=== PATIENT | male | born 1975 | race Caucasian/White ===

== ENCOUNTER 2021-03-05 11:31 | Emergency (ER) | payer BC, SELFPAY ==
[2021-03-05 11:32] VITALS: BP 174/99; PULSE 77; RESP 20; TEMP 36.5; O2SAT 96; BMI 36.4
--- NOTE | 2021-03-05 13:19 | ED.LOWEXIN ---
HPI - Extremity Injury (Lower) General Chief Complaint: Extremity Injury, Lower Stated Complaint: hamstring injury Time Seen by Provider: 03/05/21 13:19 History of Present Illness HPI Narrative: Patient complains of right hamstring pain while playing baseball he felt a sudden pop in the back of his leg and now is unable to bear weight on it Related Data Previous Rx's Medication Instructions Recorded acetaminophen 1,000 mg PO QID PRN #30 tab 03/05/21 ibuprofen 600 mg PO Q6H PRN #20 tab 03/05/21 oxycodone 5 mg PO Q6H PRN #10 cap 03/05/21 Allergies Allergy/AdvReac Type Severity Reaction Status Date / Time No Known Allergies Allergy Verified 03/05/21 11:36 Review of Systems Review of Systems: Positive for right hamstring pain Negatives are no dizziness no weakness no fainting no feeling faint no headache no neck pain no back pain no numbness weakness or tingling Yes all other systems are reviewed and are negative PMFSH Past Medical History Source: nursing notes reviewed Medical History (Updated 03/15/21 @ 09:21 by Dolly Rider MD) No known health problems Surgical History (Updated 03/15/21 @ 09:09 by Berta Oconnor CMA) H/O left knee surgery H/O right knee surgery Social History Social History (Updated 03/15/21 @ 09:10 by Berta Oconnor CMA) Current occupational status: employed 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) Physical Exam Vital Signs: Vital Signs: Last Vital Signs Temp 97.7 F 03/05/21 11:32 Pulse 77 03/05/21 11:32 Resp 20 03/05/21 11:32 BP 174/99 H 03/05/21 11:32 Pulse Ox 96 03/05/21 11:32 Body Mass Index 36.4 General appearance no distress Head is normocephalic atraumatic Neck is supple Respiratory no acute distress The back has full range of motion Extremities the right hamstring area just superior to the knee as well as the proximal hamstring have tenderness there is no ecchymosis or swelling now there is pain when he goes to bend it or fully extended there is pain when he walks on it, neurovascular intact distal and skin is intact Other extremities full range of motion Neuro no gross motor or sensory deficit Skin no lacerations Course Course Course Narrative: History and exam are consistent with a hamstring muscle tear and patient is given an Pankaj bandage crutches and follow with Orthopedics as knee Discharge Plan Discharge Clinical Impression: Hamstring tear Patient Disposition: Home, Self-Care Additional Instructions: You tore a muscle in the back of her leg, this will take many weeks to get fully better but usually your able to limp on it and walk comfortably with a limp after a few days Follow with orthopedist for further evaluation and possible physical therapy if needed Return any time any worse condition or any concerns Her blood pressure was high in the ER on this day so we recommend get a home blood pressure cuff and keep a record and follow with primary care doctor to see whether not you actually have high blood pressure Prescriptions: New oxycodone 5 mg capsule 5 mg PO Q6H PRN (Reason: pain) Qty: 10 RF: 0 acetaminophen 500 mg tablet 1,000 mg PO QID PRN (Reason: pain) Qty: 30 RF: 0 ibuprofen 600 mg tablet 600 mg PO Q6H PRN (Reason: pain) Qty: 20 RF: 0 Referrals: Kait Trevino MD [Physician] - 2 days (Hamstring injury) Stand Alone Forms: Work/School Release Interventions: ED Discharge Assessment Last Done: 03/05/21 13:45 Discharge Date/Time: 03/05/21 13:47
[2021-03-05] MEDS: Ibuprofen 600 MG TABLET PO (13:40)
--- NOTE | 2021-03-05 13:51 | PC.NURSE ---
bp 149/97, 98.2 temp, p 76, resp 16, o2sat 97% ra
== END 2021-03-05 13:47 | disposition home or self-care (01) ==
PROVIDERS: Emergency Provider Emergency Medicine Emergency Medical Services; PCP Internal Medicine
DX: S76.311A Strain of muscle, fascia and tendon of the posterior muscle group at thigh level, right thigh, initial encounter (principal); X50.1XXA Overexertion from prolonged static or awkward postures, initial encounter; Y93.64 Activity, baseball; Y92.320 Baseball field as the place of occurrence of the external cause; Y99.9 Unspecified external cause status
CPT/HCPCS: 99283

== ENCOUNTER → 2021-03-15 08:56 | Outpatient (BNVA) | payer BC, SELFPAY | PROVIDERS: Visit Provider Orthopaedic Surgery ==

== ENCOUNTER 2024-11-30 09:44 | Emergency (ER) | payer BC, SELFPAY ==
--- NOTE | ~2024-11-30 | CT_ITS ---
EXAMINATION: CT HEAD WITHOUT IV CONTRAST HISTORY: HYPERTENSION, H/A. TECHNIQUE: Unenhanced helical CT of the head was performed per standard departmental protocol. Coronal and sagittal reformats of the head were also evaluated. One or more of the following techniques was used for dose reduction: Automated exposure control, adjustment of the mA and/or kV according to patient size, use of iterative reconstruction technique. DLP: 742 mGy-cm COMPARISON: There are no prior studies for comparison. FINDINGS: BRAIN: The brain parenchyma is unremarkable. There is normal tovar/white differentiation. The ventricular system is normal in size and configuration. There is a cavum of septum pellucidum, normal variant. There is no mass effect or midline shift. No intra- or extra-axial fluid collections are identified. SINUSES: The visualized paranasal sinuses are clear. The mastoid air cells and middle ear cavities are well pneumatized. ORBITS: The visualized orbits are unremarkable. BONES/SOFT TISSUES: The extracranial soft tissues are unremarkable. The calvarium is intact. No suspicious lytic or sclerotic lesions. CT/CT head/brain wo IV con IMPRESSION: Unremarkable unenhanced head CT. Electronically signed by: Parker Irwin MD 11/30/2024 11:15 AM BRUNO
[2024-11-30 09:57] VITALS: BP 195/129; PULSE 84; RESP 18; TEMP 36.4; O2SAT 97; BMI 38.0
--- NOTE | 2024-11-30 10:05 | ECG_ITS ---
Test Reason : headache Blood Pressure : */* mmHG Vent. Rate : 81 BPM Atrial Rate : 81 BPM P-R Int : 158 ms QRS Dur : 74 ms QT Int : 346 ms P-R-T Axes : 26 2 20 degrees QTcB Int : 401 ms Normal sinus rhythm Normal ECG No previous ECGs available Referred By: Darlin Perkins Electronically Signed By: DIONY OLGUIN MD
[2024-11-30 10:36] LABS: MANUAL DIFF FLAG NO
[2024-11-30 10:39] LABS: Basophils Absolute Auto 0.1 X10*3/uL (0.0-0.2); Eosinophils Absolute Auto 0.2 X10*3/uL (0.0-0.4); Eosinophils Percent Auto 2.2 % (0-4); Hematocrit 45.8 % (42.0-52.0); Hemoglobin 16.7 g/dl (14.0-18.0); Imm Gran Abs Auto 0.01 X10*3/uL (0.00-0.03); Imm Gran Pct Auto 0.1 % (0.0-0.4); Lymphocytes Absolute Auto 2.5 X10*3/uL (1.2-4.9); Lymphocytes Percent Auto 30.7 % (20-40); Mean Corpuscular HGB Conc 36.5 g/dl (31.0-36.0); Mean Corpuscular Hemoglobin 31.6 pg (27.0-33.0); Mean Corpuscular Volume 86.6 fL (80.0-98.0); Mean Platelet Volume 10.4 fL (9.4-12.4); Monocytes Absolute Auto 0.5 X10*3/uL (0.1-1.2); Monocytes Percent Auto 5.7 % (2-11); Neutrophils Absolute Auto 4.9 x10*3/uL (2.0-8.3); Neutrophils Percent Auto 60.3 % (45-73); Platelet Count 326 X10*3/uL (160-400); Red Blood Count 5.29 X10*6/uL (4.60-5.80); Red Cell Distribution Width 12.2 % (11.0-16.0); White Blood Count 8.1 X10*3/uL (4.8-10.8)
[2024-11-30 10:50] LABS: Alanine Aminotransferase 56 U/L (0-40); Albumin Level 4.6 g/dL (3.5-5.0); Alkaline Phosphatase 71 U/L (39-117); Anion Gap 15 (12-20); Aspartate Amino Transferase 28 U/L (5-37); Bilirubin Total 0.4 mg/dL (0.0-1.0); Blood Urea Nitrogen 17 mg/dL (9-16); Calcium 9.4 mg/dL (8.4-10.2); Carbon Dioxide 20 mmol/L (22-29); Chloride 106 mmol/L (96-108); Creatinine Clr Calc Pharmacy 97.6; Estimated Glomerular Filt Rate > 60; Glucose Random 176 mg/dL (60-115); Potassium 4.4 mmol/L (3.3-5.1); Sodium 137 mmol/L (135-145); Total Protein 8.3 g/dL (6.5-8.0)
[2024-11-30 10:57] LABS: Troponin-I High Sensitivity 7.5 ng/L (<3.5-35.0)
[2024-11-30 12:34] VITALS: BP 167/87; PULSE 84; RESP 20; TEMP 36.7; O2SAT 95
--- NOTE | 2024-11-30 12:34 | MHC.EDTECH ---
vitals retaken in triage tech room, bp lowered
--- NOTE | 2024-11-30 14:05 | ED_ITS ---
HPI - General Adult General Chief complaint: Headache Stated complaint: headache Time Seen by Provider: 11/30/24 14:41 Source: patient Mode of arrival: ambulatory Limitations: no limitations History of Present Illness ED Provider: Sara Camarena PA-C HPI narrative: Patient is a 49 year old assigned male at with a history of HTN presenting to the emergency department today with a headache. Patient states that over the last day he has had headache that is primarily in the back of his head. Patient states that he has not taken his high blood pressure medication for 2 days. Patient denies any dizziness, lightheadedness, abdominal pain, nausea, vomiting, fever, chills, blurry vision, double vision, loss of vision, chest pain, difficulty breathing, shortness of breath, back pain, night sweats, pain with urination, increased urinary frequency, increased urinary urgency, blood in his urine or stool, syncope or a near syncopal episode, recent trauma or falls, bowel incontinence, bladder incontinence, or any other complaints at this time. Location: head Relieving factors: none Exacerbating factors: none Associated symptoms: headaches Treatments prior to arrival: none Related Data Previous Rx's ?Medication ?Instructions ?Recorded acetaminophen 500 mg tablet 1,000 mg (2 x 500 mg) PO QID PRN 03/05/21 pain #30 tabs ibuprofen 600 mg tablet 600 mg PO Q6H PRN pain #20 tabs 03/05/21 oxycodone 5 mg capsule 5 mg PO Q6H PRN pain #10 caps 03/05/21 Allergies Allergy/AdvReac Type Severity Reaction Status Date / Time No Known Allergies Allergy Verified 11/30/24 10:00 Review of Systems 2 Constitutional: Constitutional: Reports no additional constitutional complaints, Denies chills, Denies fever(s), Reports headache(s) and Denies night sweats Eyes: Eyes: Reports no additional eye complaints, Denies blurry vision, Denies change in vision, Denies diplopia, Denies eye discharge, Denies loss of vision and Denies eye pain ENT: Denies dizziness and Reports headache(s) Cardiovascular: Cardiovascular: Reports no additional cardiovascular complaints, Denies chest pain, Denies lightheadedness, Denies Loss of Consciousness and Denies dyspnea Respiratory: Respiratory: Reports no additional respiratory complaints and Denies dyspnea Gastrointestinal: Gastrointestinal: Reports no additional gastrointestinal complaints, Denies abdominal pain, Denies melena, Denies hematochezia, Denies change in bowel habits and Denies change in stool character Genitourinary: Genitourinary: Reports no additional male genitourinary complaints, Denies hematuria, Denies oliguria, Denies difficulty urinating, Denies dysuria, Denies urinary frequency, Denies urinary hesitancy, Denies urinary incontinence and Denies urinary urgency Musculoskeletal: Musculoskeletal: Reports no additional musculoskeletal complaints, Denies numbness and Denies tingling Neurologic: Denies dizziness, Reports headache(s), Denies loss of vision, Denies numbness and Denies tingling Psychiatric: Psychiatric: Reports no additional psychiatric complaints Endocrine: Endocrine: Reports no additional endocrine complaints Hematologic/Lymphatic: Hematologic/Lymphatic: Reports no additional hematologic/lymphatic complaints Allergic/Immunologic: Allergic/Immunologic: Reports no additional allergic/immunologic complaints PMFSH Past Medical History Attestation statement: The following information was validated with the patient. Source: old records reviewed and nursing notes reviewed Medical History No known health problems Surgical History H/O left knee surgery H/O right knee surgery Social History Social History Advance Directives: Yes Advance Directives Information Provided: No Advance Directives on File: No Current occupational status: employed Current occupation: [employer] - [employer] ([employer]) Physical Exam ED Vital Signs: Vital Signs - 24 hr 11/30/24 09:57 11/30/24 12:34 11/30/24 14:11 Temperature 97.5 F 98.1 F Pulse Rate 84 84 81 Respiratory Rate 18 20 20 Blood Pressure 195/129 H 167/87 H 168/97 H Pulse Oximetry 97 95 94 Oxygen Delivery Method Room Air Room Air Room Air 11/30/24 14:46 Temperature 98.1 F Pulse Rate 81 Respiratory Rate 20 Blood Pressure 168/97 H Pulse Oximetry 94 Oxygen Delivery Method Room Air BMI result Body Mass Index 38.0 Const General: cooperative, no acute distress, alert and awake Nutritional Appearance: well nourished Orientation/consciousness: patient oriented x3 Limitations: no limitations HENMT Head: Yes normal to inspection and Yes atraumatic Ears: hearing grossly normal bilaterally and external ears normal General nose exam: Normal external nose present, no nasal discharge noted and no epistaxis Face and sinus: Yes normal facial exam, No abrasion and No laceration Mouth: Normal oral and palatal mucosa present, no drooling and no muffled voice Eyes General: appearance normal, both eyes and all related structures Periorbital: periorbital findings normal Eyelids: Yes eyelids normal Conjunctivae: conjunctivae normal Pupils: Equal, round and reactive pupils present EOM: EOMs intact bilaterally Neck Neck: Yes normal visual inspection, Yes full ROM and Yes no lymphadenopathy Chest Chest palpation & inspection: normal inspection of the chest Resp Effort & Inspection: normal respiratory effort and able to speak in complete sentences GI Inspection: Yes normal to inspection Neuro General: patient oriented x3, moves all extremities and CN's II-XI intact bilaterally Cranial nerves: Yes Equal, round and reactive pupils present Cognition (Neuro): normal cognition Extrem General: Yes normal to inspection, Yes full ROM and Yes capillary refill normal Psych Appearance: grossly normal Mental Status: mental status grossly normal Affect: normal affect Attitude: cooperative Thought process: Normal thought process present Thought content: Normal thought content present Insight: Good insight present (Psych) Course Course Course Narrative: RME performed by Sara Camarena PA-C. Patient is a 49 year old assigned male at presenting to the emergency department with a headache. Patient states that over the last day he has had a headache. Patient states that he has a history of high blood pressure for which he is on mediation but has not taken it for 2 days. Detailed physical exam and review of systems are deferred to the primary therapist. EKG, labs, and imaging ordered. Patient placed back in the waiting room pending room availability and results. Medical Decision Making Medical Decision Making MDM Narrative: Patient is a 49 year old assigned male at with a history of HTN presenting to the emergency department today with a headache. Patient's physical exam showed mild hypertension - consistent with someone who has not taken their prescribed anti-hypertensive medications but otherwise unremarkable. Patient's blood work was unremarkable. Patient's EKG was unremarkable. Patient's head CT showed no acute process. I explained my physical exam findings as well as all test results to the patient. I answered all questions asked by the patient. I stressed the importance of the patient taking his medication as directed (either prescribed or as the over the counter packaging recommends). I stressed the importance of the patient following up with his primary care provider. I stressed the importance of the patient returning to the emergency department immediately if his symptoms were to worsen or if he were to develop any dizziness, shortness of breath, difficulty breathing, chest pain, blurry vision, loss of vision, nausea, vomiting, abdominal pain, fever, chills, back pain, or any other complaints. Patient verbalized agreement and understanding with this treatment plan and discharge. Differential Diagnosis Differential Diagnoses: The differential diagnosis associated with the presentation includes Headache Medication non-compliance HTN Cluster headache Tension headache Admission/Observation Consideration of admission/observation: Escalation of care including admission/observation considered Patient would have been admitted to the hospital had his work up had any findings where hospital admission was appropriate and his clinical presentation warranted hospital admission. Lab Data [facility] Lab Attestation statement: I reviewed the patient's lab results. My interpretation of these results are in the [facility] Rationale portion of this note. 11/30/24 10:24 11/30/24 10:24 Labs: Lab Results 11/30/24 11/30/24 Range/Units 10:24 14:07 WBC 8.1 (4.8-10.8) X10*3/uL RBC 5.29 (4.60-5.80) X10*6/uL Hgb 16.7 (14.0-18.0) g/dl Hct 45.8 (42.0-52.0) % MCV 86.6 (80.0-98.0) fL MCH 31.6 (27.0-33.0) pg MCHC 36.5 H (31.0-36.0) g/dl RDW 12.2 (11.0-16.0) % Plt Count 326 (160-400) X10*3/uL MPV 10.4 (9.4-12.4) fL Immature Gran % (Auto) 0.1 (0.0-0.4) % Neut % (Auto) 60.3 (45-73) % Lymph % (Auto) 30.7 (20-40) % Roane % (Auto) 5.7 (2-11) % Eos % (Auto) 2.2 (0-4) % Baso % (Auto) 1.0 (0-2) % Lymph # (Auto) 2.5 (1.2-4.9) X10*3/uL Roane # (Auto) 0.5 (0.1-1.2) X10*3/uL Eos # (Auto) 0.2 (0.0-0.4) X10*3/uL Baso # (Auto) 0.1 (0.0-0.2) X10*3/uL Abs Immat Gran (auto) 0.01 (0.00-0.03) X10*3/uL Absolute Neuts (auto) 4.9 (2.0-8.3) x10*3/uL Absolute Nucleated RBC 0.000 (0.0-0.012) X10*3/uL Nucleated RBC % (auto) 0.0 (0.0-0.2) /100WBC Sodium 137 (135-145) mmol/L Potassium 4.4 (3.3-5.1) mmol/L Chloride 106 (96-108) mmol/L Carbon Dioxide 20 L (22-29) mmol/L Anion Gap 15 (12-20) BUN 17 H (9-16) mg/dL Creatinine 1.13 (0.5-1.4) mg/dL Estim Creat Clear Calc 97.6 Estimated GFR > 60 Random Glucose 176 H (60-115) mg/dL Calcium 9.4 (8.4-10.2) mg/dL Total Bilirubin 0.4 (0.0-1.0) mg/dL AST 28 (5-37) U/L ALT 56 H (0-40) U/L Alkaline Phosphatase 71 (39-117) U/L Troponin I High Sens 7.5 7.3 (<3.5-35.0) ng/L Total Protein 8.3 H (6.5-8.0) g/dL Albumin 4.6 (3.5-5.0) g/dL Independent Interpretation I performed an independent interpretation of an: EKG and CT Scan Interpretation: My interpretation is in agreement with the radiologist's impression of this imaging study. L Report Number: [id number]: Total DLP = 742.00 mGy-cm EXAMINATION: CT HEAD WITHOUT IV CONTRAST HISTORY: HYPERTENSION, H/A. TECHNIQUE: Unenhanced helical CT of the head was performed per standard departmental protocol. Coronal and sagittal reformats of the head were also evaluated. One or more of the following techniques was used for dose reduction: Automated exposure control, adjustment of the mA and/or kV according to patient size, use of iterative reconstruction technique. DLP: 742 mGy-cm COMPARISON: There are no prior studies for comparison. FINDINGS: BRAIN: The brain parenchyma is unremarkable. There is normal tovar/white differentiation. The ventricular system is normal in size and configuration. There is a cavum of septum pellucidum, normal variant. There is no mass effect or midline shift. No intra- or extra-axial fluid collections are identified. SINUSES: The visualized paranasal sinuses are clear. The mastoid air cells and middle ear cavities are well pneumatized. ORBITS: The visualized orbits are unremarkable. BONES/SOFT TISSUES: The extracranial soft tissues are unremarkable. The calvarium is intact. No suspicious lytic or sclerotic lesions. CT/CT head/brain wo IV con IMPRESSION: Unremarkable unenhanced head CT. Electronically signed by: Parker Irwin MD 11/30/2024 11:15 AM [facility] Dictated By: Parker Irwin MD Signed By: Electronically signed by Parker Irwin MD 11/30/24 1115 I independently interpreted this EKG and am in agreement with the below findings: Vent. Rate: 81 BPM Atrial Rate: 81 BPM P-R Int: 158 ms QRS Dur: 74 ms QT Int: 346 ms P-R-T Axes: 26 2 20 degrees QTcB Int: 401 ms Normal sinus rhythm No previous ECGs available Electronically Signed By: BRAVO OLGUIN MD Dictated By: Bravo Olguin MD Signed By: Electronically signed by Bravo Olguin MD 11/30/24 0886 Radiology Impression Discussion of test interpretation with radiology: I have reviewed the radiologist's reading. Chronic Conditions Patient?s care impacted by: Hypertension Discharge Plan Discharge Clinical Impression: Headache, Hypertension Patient Disposition: Home, Self-Care Instructions: Acute Headache (DC), Hypertension (ED) Additional Instructions: Your work up today is reassuring. Take your blood pressure medication as prescribed. Follow up with your primary care provider. Return to the emergency department immediately if your symptoms worsen or if you develop any dizziness, shortness of breath, difficulty breathing, chest pain, blurry vision, loss of vision, nausea, vomiting, abdominal pain, fever, chills, back pain, or any other complaints. Prescriptions: No Action oxycodone 5 mg capsule 5 mg PO Q6H PRN (Reason: pain) Qty: 10 0RF Rx Instructions: Narcotic, no driving for 6 hours after taking this medication acetaminophen 500 mg tablet 1,000 mg PO QID PRN (Reason: pain) Qty: 30 0RF ibuprofen 600 mg tablet 600 mg PO Q6H PRN (Reason: pain) Qty: 20 0RF Referrals: Aime Wilkinson MD [Primary Care Provider] - Interventions: ED Discharge Assessment Last Done: 11/30/24 14:46 Discharge Date/Time: 11/30/24 15:03 Print Language: Monegasque
[2024-11-30 14:11] VITALS: BP 168/97; PULSE 81; RESP 20; O2SAT 94
[2024-11-30 14:35] LABS: Troponin-I High Sensitivity 7.3 ng/L (<3.5-35.0)
[2024-11-30 14:46] VITALS: BP 168/97; PULSE 81; RESP 20; TEMP 36.7; O2SAT 94
--- OUTSIDE RECORDS SUMMARY | 2024-11-30 17:37 | XMS_ITS | Clinical Summary ---
Author Organization [facility] Address [address] [place] [address] Phone Care Team Providers Care Sales Force Administrator Name Role Phone Aime Wilkinson MD Primary Care Provider [phone] Allergies No known active allergies Medications clotrimazole (LOTRIMIN) 1 % cream Apply thin layer to affected area twice daily for 3 weeks. 06/29/2024 06/24/20 25 Active amLODIPine (NORVASC) 5 mg tablet Take 1 Tablet by mouth daily. Active ibuprofen (ADVIL,MOTRIN) 600 mg tablet Take 1 tablet (600 mg total) by mouth every 6 (six) hours if needed. 05/18/2024 Active Active Problems Problem Noted Date Diagnosed Date Primary hypertension 11/22/2022 Mixed hyperlipidemia 11/22/2022 Prediabetes 11/22/2022 Carpal tunnel syndrome 11/27/2012 Groin strain 06/20/2010 Hypertriglyceridemia 02/10/2008 Elevated blood pressure reading 02/10/2008 Encounters Date Type Department Care Team Description 11/30/2024 Telephone Adult Medicine [facility] [place] [address] [place] [phone] Aime Wilkinson MD Headache 11/04/2024 9:00 AM EST Consult Gastroenterology [facility] [address] [address] Monica Ladd NP Esophageal dysphagia (Primary Dx) 11/04/2024 Telephone Gastroenterology [facility] [address] 175 [facility] [address] [place] [phone] Wilberto LAWRENCE armstrong 09/25/2024 1:30 PM EST - 09/25/2024 11:59 PM EST Hospital Encounter XRAY - [place] [address] [place] [address] Esophageal dysmotility Discharge Disposition: Home or Self Care 09/21/2024 9:18 AM EST - 09/21/2024 11:59 PM EST Hospital Encounter [facility] Xray [address] [place] [phone] Discharge Disposition: Home or Self Care from Last 3 Months Immunizations Name Administration Dates Next Due Influenza trivalent, 0.5mL, preservative free (Fluarix; FluLaval; Fluzone) ages 6mo and older (Afluria) 3 years and older 06/17/2012,08/16/2011,06/20/2010,2008 Td Tetanus diptheria (Tdvax) 7yo and older 05/04/2022,08/25/2003 Tdap Tetanus diptheria acell ular pertussis (Boostrix; Adacel) 7yo and older 12/06/2011 Surgical History Surgery Date Site/Laterality Comments KNEE SURGERY PROCEDURE: HISTORICAL KNEE SURGERY; COMMENT: 2 right, 1 on left, arthroscopic surgery Medical History Medical History Date Comments Primary hypertension 11/22/2022 Family History Medical History Relation Name Comments Heart attack Brother 1 DM, obese No Known Problems Brother 2 No Known Problems Brother 3 No Known Problems Daughter Stroke Father [place], CABG No Known Problems Maternal Grandfather No Known Problems Maternal Grandmother sm oker Dementia Mother arthritis, pace maker No Known Problems Paternal Grandfather No Known Problems Paternal Grandmother Arthritis Sister 1 Hypertension Sister 2 No Known Problems Son Blindness Neg Hx Cataracts Neg Hx Glaucoma Neg Hx Macular degeneration Neg Hx Strabismus Neg Hx Relation Name Status Comments Brother 1 Alive Brother 2 Alive Brother 3 Alive Daughter Alive Father Maternal Grandfather Maternal Grandmother Mother Paternal Grandfather Paternal Grandmother Sister 1 Alive Sister 2 Alive Son Alive Social History Tobacco Use Types Packs/Day Years Used Date Smoking Tobacco: Never Smokeless Tobacco: Never Alcohol Use Standard Drinks/Week Comments Yes 0 (1 standard drink = 0.6 oz pur e alcohol) Sex and Gender Information Value Date Recorded Sex Assigned at Not on file Legal Sex Male 9:53 PM EST Gender Identity Not on file Sexual Orientation Not on file Obstetrics History Last Filed Vital Signs Vital Sign Reading Time Taken Comments Blood Pressure 142/92 06/29/2024 8:32 AM EDT Pulse 94 06/29/2024 8:32 AM EDT Temperature - - Respiratory Rate - - Oxygen Saturation - - Inhaled Oxygen Concentration - - Weight 117 kg (259 lb) 11/04/2024 9:02 AM EST Height 172.7 cm (5' 8 ) 11/04/2024 9:02 AM EST Body Mass Index 39.38 11/04/2024 9:02 AM EST Plan of Treatment Upcoming Encounters Date Type Department Care Team (Late st Contact Info) Description 12/29/2024 1:30 PM EDT Appointment [facility] Endoscopy [address] [place] [phone] Matt Camp DO 175 [facility] [place] [address] [place] [address] Health Maintenance Due Date Last Done Comments Hepatitis B Vaccines (1 of 3 - 19+ 3-dose series) 1995 Colorectal Cancer Screening: Colonoscopy 09/08/2022 Depression Screening 09/08/2022 HIV Screening 09/08/2022 Hepatitis C Screening 09/08/2022 Social Influencers of Health Screening 09/08/2022 COVID-19 Vaccine ( season) 2024 Influenza Vaccine (#1) 2024 2, 08/16/2011, 06/20/2010, Additional history exists Hypertension/CHF/CAD Annual BMP Blood Test 06/29/2025 06/29/2024, 06/29/2024 Cholesterol Screening (Lipid Panel) 06/29/2029 06/29/2024, 06/29/2024 DTaP,Tdap,and Td Vaccines (4 - Td or Tdap) 05/04/2032 05/04/2022, 12/06/2011, 08/25/2003 HIB Vaccines Aged Out No longer eligi ble based on patient's age to complete this topic HPV Vaccines Aged Out No longer eligi ble based on patient's age to complete this topic Hepatitis A Vaccines Aged Out No long er eligible based on patient's age to complete this topic IPV Vaccines Aged Out No longer eligi ble based on patient's age to complete this topic MMR Vaccines Aged Out No longer eligi ble based on patient's age to complete this topic Meningococcal ACWY Vaccine Aged Out N o longer eligible based on patient's age to complete this topic Meningococcal B Vacine Aged Out No lo nger eligible based on patient's age to complete this topic Pneumococcal Vaccine: Pediatrics (0 to 5 Years) and At-Risk Patients (6 to 64 Years) Aged Out No longer eligible based on patient's age to complete this topic RSV Immunization Patients Under 20 months Aged Out No longer eligible based on patient's age to complete this topic Varicella Vaccines Aged Out No longer eligible based on patient's age to complete this topic Procedures Procedure Name Priority Date/Time Associated Diagnosis Comments XR CHEST 2 VIEWS Routine 09/25/2024 1:39 PM EST Esophageal dysmotility XR ESOPHAGRAM Routine 09/21/2024 1:52 PM EST Dysphagia HM ANNUAL BMP BLOOD TEST Routine 06/29/2024 LIPID PANEL Routine 06/29/2024 from Last 3 Months or Most Recently Relevant to Health Maintenance Results * XR Chest 2 Views (09/25/2024 1:39 PM EST) Anatomical Region Laterality Modality Body Radiographic Geraldine ging 09/25/2024 4:24 PM EST Impressions 09/25/2024 4:26 PM EST No acute pulmonary pathology. However, if there is clinical concern for a lesion, then chest CT would be suggested. -------- FINAL REPORT -------- Dictated By: Nuzhat Johnson Dictated Date: 09/25/2024 16:24 ET Assigned Physician: Nuzhat Johnson Reviewed and Electronically Signed By: Nuzhat Johnson Signed Date: 09/25/2024 16:26 ET Workstation ID: [id number] Transcribed By: Self Edit Transcribed Date: 09/25/2024 16:24 ET Narrative 09/25/2024 4:26 PM EST CHEST, TWO VIEWS HISTORY: ??To further clarify density seen near right bronchus on barium swallow study . TECHNIQUE: Frontal and lateral views of the chest. PRIOR: None currently available. FINDINGS: The lungs are clear. No pleural effusion is seen. No pneumothorax is seen. The cardiac diameter is within normal limits. No acute or aggressive appearing bony abnormalities are seen. ?? Procedure Note Nuzhat Johnson MD - 09/25/2024 CHEST, TWO VIEWS HISTORY: To further clarify density seen near right bronchus on bariumswallow study . TECHNIQUE: Frontal and lateral views of the chest. PRIOR: None currently available. FINDINGS: The lungs are clear. No pleural effusion is seen. No pneumothorax is seen. The cardiac diameter is within normal limits. No acute or aggressive appearing bony abnormalities are seen. IMPRESSION: No acute pulmonary pathology. However, if there is clinical concern for alesion, then chest CT would be suggested. -------- FINAL REPORT -------- Dictated By: Nuzhat Johnson Dictated Date: 09/25/2024 16:24 ET Assigned Physician: Nuzhat Johnson Reviewed and Electronically Signed By: Nuzhat Johnson Signed Date: 09/25/2024 16:26 ET Workstation ID: [id number] Transcribed By: Self Edit Transcribed Date: 09/25/2024 16:24 ET Bernardo SAMANIEGO IMG XR PROCEDURES Final Result * XR Esophagram (09/21/2024 1:52 PM EST) Anatomical Region Laterality Modality Head and Neck Radiographic Geraldine ging 09/21/2024 1:18 PM EST Impressions 09/21/2024 9:03 PM EST 1. 1.9 cm density adjacent to the right main bronchus seen on 1 view chest imaging as described above. ??Follow-up chest radiograph with improved depth of inspiration is recommended. ??If this finding does not resolve at that time, CT scan of the chest should then be considered. ?? 2. Moderate to severe esophageal dysmotility. 3. ??A small amount of laryngeal penetration occurred, without glenna aspiration. -------- FINAL REPORT -------- Dictated By: Amrita Hurt Dictated Date: 09/21/2024 13:18 ET Assigned Physician: Jos Oquendo Reviewed and Electronically Signed By: Jos Oquendo Signed Date: 09/21/2024 21:03 ET Workstation ID: [id number] Transcribed By: Self Edit Transcribed Date: 09/21/2024 13:42 ET Resident/PA/MANAGEMENT TRAINEE PROGRAM STORES: Amrita Hurt Narrative 09/21/2024 9:03 PM EST FINDINGS: Double contrast esophagram performed. COMPARISON: None HISTORY: Patient is a 49-year-old male with history of dysphagia, reflux. Machine Rigger radiographs: 1 view chest radiograph demonstrates poor inspiratory effort. Mediastinal borders within normal limits. Cardiac silhouette is upper limits of normal. There is a 1.9 cm density adjacent to the right main bronchus which may be secondary to poor inspiration, though developing nodule, mass, or infiltrate in this region cannot be excluded. 1 view lateral soft tissue neck demonstrates no prevertebral soft tissue masses. Airway is widely patent. Effervescent crystals were administered orally. Thick and thin barium were administered orally under fluoroscopic control. Pharyngoesophagram: Rapid sequence imaging of the hypopharynx during swallowing demonstrates prompt initiation of swallowing. There is normal soft palate elevation and normal epiglottic motion. ??A small amount of laryngeal penetration occurred, without glenna aspiration. There is no residual in the vallecula nor in the piriform sinuses. Thoracic esophagus: Moderate to severe esophageal dysmotility as demonstrated by slow transit of contrast down the esophagus, a patulous appearance of the esophagus, and nonperistaltic and tertiary contractions visualized. Normal distensibility and mucosal pattern without evidence of ulceration, stricture or mass formation. Hiatal hernia: None Reflux: Unable to elicit 13mm Barium pill: Swallowed without difficulty. Prompt passage of pill from the esophagus into the stomach. DAP: 1461.2 uGym^2 Exam performed and dictated by: Amrita Hurt PA-C Supervising physician: Jos Oquendo MD Procedure Note Jos Oquendo MD - 09/21/2024 FINDINGS: Double contrast esophagram performed. COMPARISON: None HISTORY: Patient is a 49-year-old male with history of dysphagia,reflux. Machine Rigger radiographs: 1 view chest radiograph demonstrates poor inspiratoryeffort. Mediastinal borders within normal limits. Cardiac silhouette isupper limits of normal. There is a 1.9 cm density adjacent to the rightmain bronchus which may be secondary to poor inspiration, thoughdeveloping nodule, mass, or infiltrate in this region cannot be excluded.1 view lateral soft tissue neck demonstrates no prevertebral soft tissuemasses. Airway is widely patent. Effervescent crystals were administered orally. Thick and thin barium wereadministered orally under fluoroscopic control. Pharyngoesophagram: Rapid sequence imaging of the hypopharynx duringswallowing demonstrates prompt initiation of swallowing. There is normalsoft palate elevation and normal epiglottic motion. A small amount oflaryngeal penetration occurred, without glenna aspiration. There is noresidual in the vallecula nor in the piriform sinuses. Thoracic esophagus: Moderate to severe esophageal dysmotility asdemonstrated by slow transit of contrast down the esophagus, a patulousappearance of the esophagus, and nonperistaltic and tertiary contractionsvisualized. Normal distensibility and mucosal pattern without evidence ofulceration, stricture or mass formation. Hiatal hernia: None Reflux: Unable to elicit 13mm Barium pill: Swallowed without difficulty. Prompt passage of pillfrom the esophagus into the stomach. DAP: 1461.2 uGym^2 Exam performed and dictated by: Amrita Hurt PA-C Supervising physician: Jos Oquendo MD IMPRESSION: 1. 1.9 cm density adjacent to the right main bronchus seen on 1 view chestimaging as described above. Follow-up chest radiograph with improveddepth of inspiration is recommended. If this finding does not resolve atthat time, CT scan of the chest should then be considered. 2. Moderate to severe esophageal dysmotility. 3. A small amount of laryngeal penetration occurred, without frankaspiration. -------- FINAL REPORT -------- Dictated By: Amrita Hurt Dictated Date: 09/21/2024 13:18 ET Assigned Physician: Jos Oquendo Reviewed and Electronically Signed By: Jos Oquendo Signed Date: 09/21/2024 21:03 ET Workstation ID: [id number] Transcribed By: Self Edit Transcribed Date: 09/21/2024 13:42 ET Resident/PA/MANAGEMENT TRAINEE PROGRAM STORES: Amrita Hurt Bernardo SAMANIEGO IMG FLUOROSCOPY PROCEDUR ES Final Result * Annual BMP Blood Test (06/29/2024) Annual BMP Blood Test Abstracted Historical Provider HEALTH MAINTENANCE Final Result * (ABNORMAL) Lipid panel (06/29/2024) LDL/HDL Ratio 8(A) 0 - 4 Triglycerides 422(A) 0 - 150 mg/dL Cholesterol 272(A) 0 - 200 mg/dL HDL 33(A) >=40 mg/dL LDL Cholesterol 155(A) 0 - 100 mg/dL Blood Venous blood specimen / Unknown Historical Provider LAB BLOOD ORDERABLES Soni l Result from Last 3 Months or Most Recently Relevant to Health Maintenance Insurance [employer] Care Teams Sales Force Administrator Relationship Specialty Start Date End Date Aime Wilkinson MD [address] [place], [place] [phone] PCP - General Internal Medicine 08/16/11
--- OUTSIDE RECORDS SUMMARY | 2024-11-30 17:37 | XMS_ITS | Encounter Summary ---
Author Organization [facility] Address [address] [place] [address] Care Team Providers Care Smoking Pipe Repairer Name Role Phone Aime Wilkinson MD Primary Care Provider [phone] Reason for Visit * Reason Onset Date Comments Headache 11/30/2024 Encounter Details Date Type Department Care Team (Late st Contact Info) Description 11/30/2024 Telephone Adult Medicine [facility] [place] [address] [place] [phone] Aime Wilkinson MD [address] [place], [place] [phone] Headache Social History Tobacco Use Types Packs/Day Years Used Date Smoking Tobacco: Never Smokeless Tobacco: Never Alcohol Use Standard Drinks/Week Comments Yes 0 (1 standard drink = 0.6 oz pur e alcohol) Sex and Gender Information Value Date Recorded Sex Assigned at Not on file Legal Sex Male 9:53 PM EST Gender Identity Not on file Sexual Orientation Not on file documented as of this encounter Progress Notes * Shanita Wisdom RN - 11/30/2024 9:57 AM EST Pt had a sudden severe pain in his head this am and was concerned he had an aneurysm so he went to [facility] directly, she will call back after he is seen for f/u * Ravi Iverson - 11/30/2024 8:55 AM EST Patient call requires triage: Symptoms patient is presenting: Patient had a small aneurism today , states that he has been havinga shooting pain in the head , would like to speak to nurse to get advice on what to do How long has patient had these symptoms?: today - this morning For ALL patients calling to schedule any appointment (routine, sick visit, follow up, consult, etc.) in the outpatient setting please ask the following questions: Do you have fever of higher than 101, sore throat with difficulty swallowing or severe shortness ofbreath? no If YES to any of these above symptoms, send a message to triage and do not book. Red dot. If no, an audio or video visit should be booked. Have you had close contact with someone with Coronavirus in the last 14 days? no Have you traveled abroad? no Have you traveled recently to another state outside of [place], [place], [place], [place], [place], [place]? no o If yes, did you quarantine for 14 days or have a negative covid test? no If yes to any of the above, patient is not to be scheduled in office until after 14 day quarantine or negative covid test. If pain or injury related was it due to an accident at work or from a motor vehicle accident? If yes, date of accident/Injury: No If yes, gather 3rd constitution party insurance information Third Green Party Information: not applicable PCP: Aime Wilkinson MD Payor: CRISTIAN / Plan: [employer]IG[employer] PPO / Product Type: *No Product type* / documented in this encounter Plan of Treatment Upcoming Encounters Date Type Department Care Team (Late st Contact Info) Description 12/29/2024 1:30 PM EDT Appointment [facility] Endoscopy [address] [place] [phone] Matt Camp, [address] [address] documented as of this encounter Visit Diagnoses Not on filedocumented in this encounter Care Teams Smoking Pipe Repairer Relationship Specialty Start Date End Date Aime Wilkinson MD [address] [place] [id number] PCP - General Internal Medicine 08/16/11 documented as of this encounter
--- OUTSIDE RECORDS SUMMARY | 2024-11-30 17:37 | XMS_ITS | Encounter Summary ---
Author Organization [facility] Address [address] [place] [address] Care Team Providers Care Freight Solicitor Name Role Phone Aime Wilkinson MD Primary Care Provider [phone] Encounter Details Date Type Department Care Team ([facility] st Contact Info) Description 11/04/2024 9:00 AM EST Consult Gastroenterology - [address] [address] Monica Ladd NP [address] [facility] [address] [place], [place] [phone] Esophageal dysphagia (Primary Dx) Social History Tobacco Use Types Packs/Day Years [...] on file documented as of this encounter Last Filed Vital Signs Vital Sign Reading Time Taken Comments Blood Pressure - - Pulse - - Temperature - - Respiratory Rate - - Oxygen Saturation - - Inhaled Oxygen Concentration - - Weight 117 kg (259 lb) 11/04/2024 9:02 AM EST Height 172.7 cm (5' 8 ) 11/04/2024 9:02 AM EST Body Mass Index 39.38 11/04/2024 9:02 AM EST documented in this encounter Progress Notes * Monica Ladd NP - 11/04/2024 9:00 AM EST CONSULT REQUEST CHIEF COMPLAINT: Dysphagia HPI: Troy Thakur is a 49 y.o. old male whose PMH includes hypertriglyceridemia, hypertension, groin strain and carpal tunnel syndrome was referred to the gastroenterology department today for evaluation of dysphagia. Patient reports feeling of food getting stuck behind his chest wall for the last 2 years. Dysphagia is intermittent and does not seem to be associated with specific foods. He reports occasional coughing with meals and regurgitation of food particles. He denies choking episodes. He was seen by his PCP last year, and requested to follow up with gastroenterology. During this visit, he denies fever or malaise, nausea, vomiting, odynophagia, hematemesis, abdominal pain, loss of appetite, unintentional weight loss, change in bowel habits, melena or hematochezia. He denies NSAIDs, tobacco or marijuana use. Occasional social alcohol use. Barium swallow 09/21/2024: Moderate to severe esophageal dysmotility. Laryngeal penetration occurred. No known family history of colon cancer. No historical colonoscopy or EGD. Colonoscopy scheduled 12/29/24. ROS: GENERAL: No malaise, significant weight loss or fever HEENT: No changes in hearing or vision, nose bleeds NECK: No lumps, goiter, pain or significant neck swelling RESPIRATORY: No cough, wheezing or shortness of breath CARDIOVASCULAR: No chest pain, leg swelling or palpitations GI: See HPI MUSCULOSKELETAL: No joint pain or swelling, back pain, or muscle pain. SKIN: No lesions, rash or itching PAST MEDICAL HISTORY: Patient Active Problem List Diagnosis Hypertriglyceridemia Elevated blood pressure reading Groin strain Carpal tunnel syndrome Primary hypertension Mixed hyperlipidemia Prediabetes PAST SURGICAL HISTORY: Past Surgical History: Procedure Laterality Date KNEE SURGERY PROCEDURE: HISTORICAL KNEE SURGERY; COMMENT: 2 right, 1 on left, arthroscopic surgery SOCIAL HISTORY: Social History Tobacco Use Smoking status: Never Smokeless tobacco: Never Substance Use Topics Alcohol use: Yes Drug use: No FAMILY HISTORY: Family History Problem Relation Name Age of Onset No Known Problems Maternal Grandmother smoker No Known Problems Maternal Grandfather No Known Problems Paternal Grandmother No Known Problems Paternal Grandfather Dementia Mother arthritis, pacemaker Stroke Father [place], CABG Arthritis Sister Hypertension Sister Heart attack Brother DM, obese No Known Problems Brother No Known Problems Brother No Known Problems Son No Known Problems Daughter Blindness Neg Hx Cataracts Neg Hx Glaucoma Neg Hx Macular degeneration Neg Hx Strabismus Neg Hx MEDICATIONS: Outpatient Medications Marked as Taking for the 11/04/24 encounter (Consult) with Monica Ladd NP Medication Sig Dispense Refill amLODIPine (NORVASC) 5 mg tablet Take 1 Tablet by mouth daily. ibuprofen (ADVIL,MOTRIN) 600 mg tablet Take 1 tablet (600 mg total) by mouth every 6 (six) hours ifneeded. ALLERGIES: No Known Allergies PHYSICAL EXAM: Visit Vitals Ht 1.727 m (68 ) Wt 117 kg (259 lb) BMI 39.38 kg/m?? Smoking Status Never BSA 2.28 m?? APPEARANCE: Alert and in no acute distress EYES: Conjunctiva and sclera normal. MOUTH/THROAT: No erythema, exudates or lesions noted NECK: Neck supple, no adenopathy HEART: RRR with normal S1 and S2 LUNG: clear to auscultation ABDOMEN: soft non tender, no ascites, guarding, or rebound. RECTAL: Exam deferred NEURO: Awake, alert and oriented x 3 SKIN: Skin color, texture, turgor normal. LABS: No results found for: WBC , HGB , HCT , MCV , PLT No results found for: ALT , AST , GGT , ALKPHOS , BILITOT IMAGING: No results found for this or any previous visit from the past 365 days. IMPRESSION: 1. Esophageal dysphagia PLAN: Troy Thakur is a 49 y.o. old male whose PMH includes hypertriglyceridemia, hypertension, groin strain and carpal tunnel syndrome presents for evaluation of dysphagia. 1. Esophageal dysphagia: Ongoing for the last 2 years. Barium swallow revealed moderate to severe esophageal dysmotility. I will schedule diagnostic EGD with dilatation as needed if strictures present. If EGD unremarkable, Iwill consider esophageal manometry/motility study. EGD to be completed with colonoscopy scheduled 12/29/24. Follow-up after EGD. Patient understands the risks of EGD include infection and bleeding. Tissue biopsy may be performedduring the procedure. Patient agrees with the above plan and understands the need to follow up as indicated. Please note, this note may have been created in part by using [employer]iere dictation software, and therefore, it may contain typographical and/or grammatical errors inherent in a voice recognition software program No orders of the defined types were placed in this encounter. None documented in this encounter Plan of Treatment Upcoming Encounters Date Type Department Care Team (Late st Contact Info) Description 12/29/2024 1:30 PM EDT Appointment [facility] Endoscopy [address] [place] [address] Matt Camp DO [address] [address] documented as of this encounter Visit Diagnoses Diagnosis Esophageal dysphagia- Primary Dysphagia, pharyngoesophageal phase documented in this encounter Care Teams Freight Solicitor Relationship Specialty Start Date End Date Aime Wilkinson MD [address] [place] [address] PCP - General Internal Medicine 08/16/11 documented as of this encounter
--- OUTSIDE RECORDS SUMMARY | 2024-11-30 17:37 | XMS_ITS | Encounter Summary ---
Author Organization [facility] Address [address] [place] [address] Care Team Providers Care Racebook Writer Name Role Phone Aime Wilkinson MD Primary Care Provider [phone] Encounter Details Date Type Department Care Team ([facility] st Contact Info) Description 11/04/2024 Telephone Gastroenterology - [place] [address] [place] [address] Monica Ladd NP 175 [facility] [place] [address] [place], [place] [id number] Social History Tobacco Use Types Packs/Day Years [...] as of this encounter Progress Notes * Agata Viera MA - 11/04/2024 12:53 PM EST Added EGD. * Monica Ladd NP - 11/04/2024 11:58 AM EST Please add diagnostic EGD for dysphagia to be completed with colonoscopy scheduled for 12/29/[address] Camp. Thank you. documented in this encounter Plan of Treatment Upcoming Encounters Date Type Department Care Team (Late st Contact Info) Description 12/29/2024 1:30 PM EDT Appointment [facility] [address] [place] [address] Matt Camp DO 175 [facility] [address] [place] [address] documented as of this encounter Visit Diagnoses Not on filedocumented in this encounter Care Teams Racebook Writer Relationship Specialty Start Date End Date Aime Wilkinson MD [address] [place] [address] PCP - General Internal Medicine 08/16/11 documented as of this encounter
== END 2024-11-30 15:03 | disposition home or self-care (01) ==
LOC: HO.ED 14:48
PROVIDERS: Physician Assistant Medical; Emergency Provider Emergency Medicine; PCP Internal Medicine
DX: R51.9 Headache, unspecified (principal); I10 Essential (primary) hypertension
CPT/HCPCS: 36415; 70450; 80053; 84484; 85025; 93005; 99284

== ENCOUNTER → 2024-11-30 10:05 | Outpatient (BNV) | payer BC, SELFPAY | PROVIDERS: Emergency Provider Emergency Medicine; PCP Internal Medicine; Visit Provider Internal Medicine Cardiovascular Disease | DX: R51.9 Headache, unspecified (principal) | CPT/HCPCS: 93010 ==

== ENCOUNTER → 2024-11-30 10:31 | Outpatient (BNV) | payer BC, SELFPAY | PROVIDERS: PCP Internal Medicine; Visit Provider Radiology Diagnostic Radiology | DX: I10 Essential (primary) hypertension (principal); R51.9 Headache, unspecified | CPT/HCPCS: 70450 ==